=== PATIENT | male | born 1980 | race Hispanic/Latino ===

== ENCOUNTER 2016-07-30 20:02 | Emergency (ER) | payer SELFPAY ==
[2016-07-30 21:40] LABS: HEMATOCRIT 43.5 % (39.0-50.0); HEMOGLOBIN 15.9 g/dl (14.0-18.0); IMMATURE GRANULOCYTES 0.4 % (0.0-1.0); MEAN CELL VOLUME 85.1 fL CALC (80.0-100.0); MEAN CORPUSCULAR HGB 31.1 pG CALC (26.0-32.0); MEAN CORPUSCULAR HGB CONC 36.6 g/L CALC (32.0-36.0); NEUT# 8.14 thou/uL (1.82-7.42); RED BLOOD COUNT 5.11 mill/uL (4.70-6.10); RED CELL DISTRI WIDTH 12.1 % (11.5-15.5)
[2016-07-30 21:51] LABS: ALBUMIN 5.2 g/dL (3.2-5.0); ALKALINE PHOSPHATASE 77 u/l (38-126); ANION GAP 20 (6-22 (CALC)); BILIRUBIN, TOTAL 1.7 mg/dL (0.0-1.4); BUN 18 mg/dL (9-20); BUN/CREATININE RATIO 16 (12-20 (CALC)); CARBON DIOXIDE 22 mmol/l (22-30); CHLORIDE 102 mmol/l (95-108); CREATININE 1.1 mg/dL (0.7-1.3); GFR > 60 ML/MIN (>=60 (CALC)); GFR FOR AFR.AMER. > 60 ML/MIN (>=60 (CALC)); GLUCOSE 89 mg/dL (75-110); POTASSIUM 3.6 mmol/l (3.5-5.1); SGOT/AST 109 u/l (17-59); SGPT/ALT 105 u/l (21-72); SODIUM 140 mmol/l (137-146); TOTAL PROTEIN 8.8 g/dL (6.3-8.2)
[2016-07-30] MEDS ORDERED: FAMVIR500 MG PO (23:56)
[2016-07-30] MEDS ORDERED: MEDDOSEPAK PO (23:56)
[2016-07-30] MEDS ORDERED: VISINE TEAR1 OD (23:56)
[2016-07-31 00:21] VITALS: BP 179/98
== END 2016-07-31 00:18 | disposition home or self-care (01) | DRG 74 ==
LOC: ED 20:02
PROVIDERS: Emergency Medicine
DX: G51.0 Bell's palsy (principal); R51 Headache